=== PATIENT | female | born 1995 | race Caucasian/White ===

== ENCOUNTER → 2021-01-09 15:26 | Outpatient (BNVA) | payer MEDICAID, SELFPAY | PROVIDERS: Visit Provider Nurse Practitioner Family | DX: Z20.822 Contact with and (suspected) exposure to COVID-19 (principal); J11.1 Influenza due to unidentified influenza virus with other respiratory manifestations; K50.919 Crohn's disease, unspecified, with unspecified complications; R69 Illness, unspecified | CPT/HCPCS: 87400; 87635 ==